=== PATIENT | male | born 1985 | race Hispanic/Latino ===

== ENCOUNTER 2021-10-17 01:55 | Emergency (ER) | payer MEDICAID ==
[~2021-10-17] VITALS: Ht 182.9 cm; Wt 108.9 kg
[2021-10-17] MEDS ORDERED: VENTOLIN HFA18 GM INH (02:51)
[2021-10-17] MEDS ORDERED: VITAMIN B-1100 MG PO (02:51)
[2021-10-17] MEDS ORDERED: CONSTULOSE10 GM/15 M PO (02:52)
[2021-10-17] MEDS ORDERED: CALCIUM500 MG PO (02:53)
[2021-10-17] MEDS ORDERED: CIPRO500 MG PO (02:54)
[2021-10-17] MEDS ORDERED: LEVOTHYROXINE100 MC2 PO (02:54)
[2021-10-17] MEDS ORDERED: HYDROXYZINE HCL25 MG PO (02:55)
[2021-10-17] MEDS ORDERED: BACLOFEN10 MG PO (02:55)
[2021-10-17] MEDS ORDERED: OMEPRAZOLE20 M1 PO (02:55)
--- OUTSIDE RECORDS SUMMARY | 2021-10-17 03:46 | XMS ---
PreManage Notification: RAFI COUCH Security Sales Planning Analyst Events No recent Security Events currently on file CRITERIA MET - [facility] - 3 Facilities in 90 Days - [facility] - 2 Visits in 30 Days - [facility] - Has Care Guidelines - 6 ED Visits in 6 Months CARE PROVIDERS JOAQUIN GORDON Internal Medicine Current PHONE: [phone] Guidelines Source: [facility] Guidelines Date: 05/30/2021 Care Recommendation: ED CARE GUIDELINES FOR [facility] Rafi Couch, : 1985 Last Updated: 04/06/2021 PCP: [facility] [employer] [facility] [phone] *VERY HIGH ED UTILIZER* CARE RECOMMENDATION: - -EMTALA Basic Screening EXAM, if not an emergency -?Contact Social Work CCT at every ED visit. - -Void care plan if patient is here for actual emergency - - Restrict use of opioids in ED to obvious trauma or acute medical issue(s) - - Establish that NO opioids or benzodiazepines will be given for chronic conditions - -IF pain is chronic refer patient back to primary care provider and/or specialist - -Refer to primary care provider for non-urgent medical issue(s) - -Meet with ED CCT Case Management as needed for education for appropriate use of the emergency room - -Offer Detox as needed - -Referral to Peer Support Senior Electrical Engineer - -Pt needs assistance/education on medication management (as of 03/25/2021) - MEDICAL/SURGICAL HISTORY: - -Anemia - -Asthma - -Ascites - -Cirrhosis, alcoholic - -Hypertension - -Hypothyroidism - -Esophageal Varices - -EG with Varices Ligation - -Paracentesis - -Thyroid disease - BEHAVIORAL /PSYCHIATRIC/SOCIAL HISTORY: - -No know notable history\T\nbsp; - SUBSTANCE ABUSE/OVERDOSE HISTORY: - -Alcohol Abuse - -Nicotine Dependence - -Cocaine use - These are guidelines and the provider should exercise clinical judgement when providing care. \T\nbsp; Additional care guidelines exist for the following facilities: [facility] ( 04/12/2021 ) [place] VISIT COUNT (12 MO.) [address] [place] TOTAL 32 NOTE: Visits indicate total known visits. ED/UCC VISIT TRACKING (12 MO.) 10/17/2021 01:55 [facility] TYPE: Emergency COMPLAINT: - CHEST PAIN 10/07/2021 09:59 [facility] TYPE: Emergency 09/22/2021 02:49 [facility] TYPE: Emergency 09/19/2021 15:21 [facility] TYPE: Emergency DIAGNOSES: - Disorder of urea cycle metabolism, unspecified - Alcoholic cirrhosis of liver with ascites - End stage renal disease - Altered Mental Status - Unspecified cirrhosis of liver - Essential (primary) hypertension - Altered mental status, unspecified 09/17/2021 17:59 [facility] TYPE: Emergency COMPLAINT: - Altered mental status, unspecified DIAGNOSES: 1. Hypertensive chronic kidney disease with stage 5 chronic kidney disease or end stage renal disease 2. Dependence on renal dialysis 3. End stage renal disease 4. Disorientation, unspecified 5. Nicotine dependence, unspecified, uncomplicated 08/23/2021 05:12 [facility] TYPE: Emergency 08/08/2021 04:21 [facility] TYPE: Emergency 08/06/2021 21:00 [facility] TYPE: Emergency COMPLAINT: - x ray left foot 07/29/2021 07:58 [facility] TYPE: Emergency 07/21/2021 03:19 [facility] TYPE: Emergency DIAGNOSES: - COVID-19 - End stage renal disease - Anemia, unspecified - Dependence on renal dialysis - Alcoholic cirrhosis of liver without ascites - Disorder of urea cycle metabolism, unspecified - Headache (Adult - New Onset Or New Symptoms) - Hepatic failure, unspecified without coma 07/18/2021 22:47 [facility] TYPE: Emergency COMPLAINT: - nathaly 07/14/2021 10:53 [facility] TYPE: Emergency COMPLAINT: - WEAKNESS 07/07/2021 01:41 [facility] TYPE: Emergency 07/06/2021 17:02 [facility] TYPE: Emergency COMPLAINT: - Syncope and collapse DIAGNOSES: 1. Hypertensive chronic kidney disease with stage 5 chronic kidney disease or end stage renal disease 2. End stage renal disease 3. Disorientation, unspecified 06/22/2021 01:38 [facility] TYPE: Emergency COMPLAINT: - face/arm numbness 06/21/2021 18:19 [facility] TYPE: Emergency COMPLAINT: - Dizziness and giddiness - Pain in left shoulder DIAGNOSES: 1. Anxiety disorder, unspecified 2. Dependence on renal dialysis 3. Chest pain, unspecified 06/14/2021 23:14 [facility] TYPE: Emergency COMPLAINT: - Infect/inflm react d/t oth cardi/vasc dev/implnt/grft, init DIAGNOSES: 1. Infection and inflammatory reaction due to other cardiac and vascular devices, implants and grafts, initial encounter 06/09/2021 13:00 [facility] TYPE: Emergency DIAGNOSES: - Hepatic failure, unspecified without coma - AMS - Altered Mental Status 05/27/2021 20:36 [facility] TYPE: Emergency COMPLAINT: - Paresthesia of skin - Disorientation, unspecified - Weakness DIAGNOSES: 1. Disorder of urea cycle metabolism, unspecified 2. Alcoholic cirrhosis of liver without ascites 3. Essential (primary) hypertension 05/14/2021 10:28 [facility] TYPE: Emergency Plus 12 More Visits INPATIENT VISIT TRACKING (12 MO.) 07/21/2021 03:19 [facility] TYPE: Renal DIAGNOSES: - Dependence on renal dialysis - Anemia, unspecified - End stage renal disease - Disorder of urea cycle metabolism, unspecified - COVID-19 - Alcoholic cirrhosis of liver without ascites - Essential (primary) hypertension - Anxiety disorder, unspecified - Chronic hepatic failure without coma - Unspecified asthma, uncomplicated - Hepatic failure, unspecified without coma 06/09/2021 13:00 [facility] TYPE: Telemetry DIAGNOSES: - Unspecified asthma, uncomplicated - Anxiety disorder, unspecified - End stage renal disease - Hepatic failure, unspecified without coma - Alcoholic cirrhosis of liver with ascites - Hypertensive urgency 04/25/2021 19:42 [facility] TYPE: General Medicine DIAGNOSES: - Acute kidney failure, unspecified - Presence of other vascular implants and grafts - Other cirrhosis of liver - Hepatic failure, unspecified without coma - Shortness of breath - Alcoholic cirrhosis of liver with ascites - Hepatic failure, unspecified without coma [K72.90] - Unspecified cirrhosis of liver - Chronic kidney disease, unspecified [email or web address]
== END 2021-10-17 03:19 | disposition home or self-care (01) ==
LOC: ED 01:55
DX: T82.42XA Displacement of vascular dialysis catheter, initial encounter (principal); Y71.8 Miscellaneous cardiovascular devices associated with adverse incidents, not elsewhere classified; I12.0 Hypertensive chronic kidney disease with stage 5 chronic kidney disease or end stage renal disease; N18.6 End stage renal disease; Z99.2 Dependence on renal dialysis; Z91.048 Other nonmedicinal substance allergy status; Z79.899 Other long term (current) drug therapy
CPT/HCPCS: 71046